=== PATIENT | male | born 1955 | race Caucasian/White ===

== ENCOUNTER 2016-12-14 11:19 | Emergency (ER) | payer OTHER ==
--- NOTE | 2016-12-14 11:42 | EDPHY ---
H & P Stated Complaint: last week noticed smoke in air - this am woke SOB- denies URI Time Seen by Provider: 12/14/16 11:35 HPI/ROS: CHIEF COMPLAINT: Shortness of breath HISTORY OF PRESENT ILLNESS: Patient is a 61-year-old healthy runner who comes to the emergency department complaining that several times last night he woke up and felt conscious of his breathing. He denies any history of asthma or pulmonary disease. He is not a smoker. No recent travel or procedures. No leg pain or swelling. No chest pain. No lightheadedness. He states that even this morning he does not really feel short of breath but feels like he has to be aware of his breathing. He is saturating 99% on room air. He did use albuterol once 20 years ago from cried is but has not needed it since. No fevers. No cough. No sore throat. REVIEW OF SYSTEMS: Constitutional: denies: chills, fever, recent illness, recent injury EENTM: denies: blurred vision, double vision, nose congestion Respiratory: See HPI Cardiac: denies: chest pain, irregular heart rate, lightheadedness, palpitations Gastrointestinal/Abdominal: denies: abdominal pain, diarrhea, nausea, vomiting, blood streaked stools Genitourinary: denies: dysuria, frequency, hematuria, pain Musculoskeletal: denies: joint pain, muscle pain Skin: denies: lesions, rash, jaundice, bruising Neurological: denies: headache, numbness, paresthesia, tingling, dizziness, weakness Hematologic/Lymphatic: denies: blood clots, easy bleeding, easy bruising Immunologic/allergic: denies: HIV/AIDS, transplant EXAM: GENERAL: Well-appearing, well-nourished and in no acute distress. HEAD: Atraumatic, normocephalic. EYES: Pupils equal round and reactive to light, extraocular movements intact, sclera anicteric, conjunctiva are normal. ENT: TMs normal, nares patent, oropharynx clear without exudates. Moist mucous membranes. NECK: Normal range of motion, supple without lymphadenopathy or JVD. LUNGS: Breath sounds clear to auscultation bilaterally and equal. No wheezes rales or rhonchi. HEART: Regular rate and rhythm without murmurs, rubs or gallops. ABDOMEN: Soft, nontender, normoactive bowel sounds. No guarding, no rebound. No masses appreciated. BACK: No CVA tenderness, no spinal tenderness, step-offs or deformities EXTREMITIES: Normal range of motion, no pitting or edema. No clubbing or cyanosis. NEUROLOGICAL: Cranial nerves II through XII grossly intact. Normal speech, normal gait. 5/5 strength, normal movement in all extremities, normal sensation PSYCH: Normal mood, normal affect. SKIN: Warm, dry, normal turgor, no visible rashes or lesions. Source: Patient Exam Limitations: No limitations - Personal History Current Tetanus Diphtheria and Acellular Pertussis (TDAP): Yes - Medical/Surgical History Hx Asthma: No Hx Chronic Respiratory Disease: No Hx Diabetes: No Hx Cardiac Disease: No Hx Renal Disease: No Hx Cirrhosis: No Hx Alcoholism: No Other PMH: ACL/TA - Social History Smoking Status: Never smoked Alcohol Use: Sober Drug Use: None Constitutional: Initial Vital Signs Temperature (C) 36.6 C 12/14/16 11:29 Heart Rate 70 12/14/16 11:29 Respiratory Rate 18 12/14/16 11:29 Blood Pressure 141/89 H 12/14/16 11:29 O2 Sat (%) 97 12/14/16 11:29 O2 Delivery Mode Room Air Allergies/Adverse Reactions: No Known Allergies Allergy (Unverified 12/14/16 11:28) Home Medications: Medication Instructions Recorded NK [No Known Home Meds] 12/14/16 Medical Decision Making - Diagnostics EKG Interpretation: An EKG obtained and was read and documented in trace view. Please see trace view for full reading and report. Sinus rhythm, no acute ischemic changes, incomplete right bundle Imaging Results: Imaging Impressions Chest X-Ray 12/14/16 11:40 Impression: Minimal blunting of the left costophrenic angle, possibly related to atelectasis or trace effusion. ED Course/Re-evaluation: The patient is a healthy 61-year-old man with a normal pulmonary exam and vital signs. I will obtain an EKG and chest x-ray for reassurance. He denies chest pain. I did offer him a trial of albuterol but he states that he does not like the way it makes him feel and that he does not feel that bad. 12:15 p.m. we discussed the x-ray and EKG results. The patient is reassured. He is eager to leave. We discussed indications for returning. His perc score is negative Differential Diagnosis: Partial list of the Differential diagnosis considered include but were not limited to; bronchitis, upper respiratory tract infection and although unlikely based on the history and physical exam, I also considered pneumonia, asthma, COPD, acute coronary disease, PE. I discussed these differential diagnoses and the plan with the patient as well as the usual and expected course. The patient understands that the diagnosis is provisional and that in medicine we are not always correct and that further workup is often warranted. Usual and customary warnings were given. All of the patient's questions were answered. The patient was instructed to return to the emergency department should the symptoms at all worsen or return, otherwise to followup with the physician as we discussed. Departure - Departure Disposition: Home, Routine, Self-Care Clinical Impression: Dyspnea Qualifiers: Dyspnea type: unspecified Qualified Code(s): R06.00 - Dyspnea, unspecified Condition: Fair Instructions: Dyspnea (ED) Referrals: NONE *PRIMARY CARE P,. [Primary Care Provider] - As per Instructions Sandra Castano MD [[facility] Primary Care Provider] - As per Instructions
--- NOTE | 2016-12-14 11:45 | CPEKG ---
Heart Rate: 69 RR Interval: 870 P-R Interval: 188 QRSD Interval: 110 QT Interval: 396 QTC Interval: 425 P [place]: 79 QRS [place]: 87 T Wave [place]: 16 EKG Severity - ABNORMAL ECG - EKG Impression: SINUS RHYTHM EKG Impression: BIATRIAL ABNORMALITIES EKG Impression: INCOMPLETE RIGHT BUNDLE BRANCH BLOCK Electronically Signed By: Chandra Houston 14-Dec-2016 11:47:41
[2016-12-14 12:22] VITALS: BP 130/89; PULSE 64; RESP 16; TEMP 98.2; O2SAT 95
== END 2016-12-14 12:17 | disposition home or self-care (01) ==
LOC: CED 11:19
DX: R06.00 Dyspnea, unspecified (principal)
CPT/HCPCS: 71020-PO

== ENCOUNTER → 2017-05-03 | Outpatient (CLI) | payer OTHER | LOC: CIMAGING 10:17 | PROVIDERS: ATTEND Physician Assistant | DX: Z13.810 Encounter for screening for upper gastrointestinal disorder (principal) | CPT/HCPCS: 74018-PO ==

== ENCOUNTER 2017-05-23 16:32 | Emergency (ER) | payer OTHER ==
--- NOTE | 2017-05-23 16:43 | EDPHY ---
H & P Time Seen by Provider: 05/23/17 16:43 - Medical/Surgical History Hx Asthma: No Hx Chronic Respiratory Disease: No Hx Diabetes: No Hx Cardiac Disease: No Hx Renal Disease: No Hx Cirrhosis: No Hx Alcoholism: No Other PMH: ACL/TA - Social History Smoking Status: Never smoked Constitutional: Initial Vital Signs Temperature (C) 36.6 C 05/23/17 16:42 Heart Rate 82 05/23/17 16:42 Respiratory Rate 18 05/23/17 16:42 Blood Pressure 156/91 H 05/23/17 16:42 O2 Sat (%) 96 05/23/17 16:42 O2 Delivery Mode Room Air Allergies/Adverse Reactions: Sulfa (Sulfonamide Antibiotics) Allergy (Verified 05/23/17 16:42) Home Medications: Medication Instructions Recorded Hydrocodone/APAP 5/325 [Felda 1 - 2 each PO Q4-6PRN PRN #20 tab 05/23/17 5/325] Tamsulosin HCl [Flomax 0.4 MG (*)] 0.4 mg PO DAILY #10 cap 05/23/17 Medical Decision Making - Diagnostics Imaging: Discussed imaging studies w/ link fabric machine operator Radiologist, I viewed and interpreted images myself ED Course/Re-evaluation: CHIEF COMPLAINT: Right lower quadrant pain HISTORY OF PRESENT ILLNESS: 62-year-old gentleman with no prior history of abdominal surgeries who presents with right lower quadrant pain of approximately 3 day duration. He feels like the pain is related to constipation. He denies any nausea vomiting or diarrhea. He denies any fevers chills. He points very low in his right groin area in complains the pain is more groin pain. He also states that he had some pain on the left initially. She has never had pain like this before. Movement since stretching actually relieves the pain as opposed to exacerbated. REVIEW OF SYSTEMS: A 10 point review of systems was performed and is negative with the exception of the elements mentioned in the history of present illness. PHYSICAL EXAM: HR, BP, O2 Sat, RR. Temp noted General Appearance: Alert, well hydrated, appropriate, and non-toxic appearing. Head: Atraumatic without scalp tenderness or obvious injury Eyes: Pupils equal, round, reactive to light and accommodation, EOMI, no trauma , no injection. Ears: Clear bilaterally, no perforation, normal landmarks Nose: Atraumatic, no rhinorrhea, clear. Throat: There is no erythema or exudates, no lesions, normal tonsils, mucus membranes moist. Neck: Supple, 2+ carotid upstroke, nontender, no lymphadenopathy. Respiratory: No retractions, no distress, no wheezes, and no accessory muscle use. Lungs are clear to auscultation bilaterally. Cardiovascular: Regular rate and rhythm, no murmurs, rubs, or gallops. Bilateral carotid, radial, dorsalis pedis, and posterior tibial pulses intact. Good capillary refill all extremities. Gastrointestinal: Abdomen is soft, nontender, non-distended, no masses, no rebound, no guarding, no peritoneal signs. He has a benign abdomen and I cannot really reproduce the pain however the pain is in the very right lower quadrant area well below McBurney's point Musculoskeletal: Normal active ROM of all extremities, atraumatic. Neurological: Alert, appropriate, and interactive. The patient has normal DTRs and non-focal cranial nerves, motor, sensory, and cerebellar exam. Skin: No rashes, good turgor, no nodules on palpation. Past medical history: Noncontributory Past surgical history: No prior abdominal surgery Family history: Noncontributory Social history: Single, employed, does not abuse tobacco drugs or alcohol DIAGNOSTICS/PROCEDURES/CRITICAL CARE TIME: Study: CT of the abdomen pelvis with IV contrast Indication: Right lower quadrant abdominal pain Results: CT scan of the abdomen and pelvis was obtained. The results of the study reveal a kidney stone. I viewed the images myself on the PACS system. DIFFERENTIAL DIAGNOSIS: The differential diagnosis for the patient's abdominal pain included but was not limited to appendicitis, cholecystitis, hernias, testicular torsion, gastritis, and urinary tract infection. MEDICAL DECISION MAKING: Healthy 62-year-old with 3 days of abdominal pain localizing to the right lower quadrant. He has a fairly benign and soft abdomen and certainly no peritoneal signs. The pain is very low him use scribe' s the pain is almost groin pain. I am concerned about the potential for kidney stone or possibly a cecal diverticulitis. He could also have appendicitis. CT scan and laboratory studies are pending. Patient is comfortable and does not need anti nausea or pain meds. 1750: Spoke with radiologist, patient has a kidney stone. 1809: Reassessed patient and discussed imaging results. I have prescribed him Flomax and instructed him to follow up with a urologist. Return precautions provided; patient is comfortable with this plan. - Data Points Laboratory Results: Laboratory Results 05/23/17 16:45 18 16:45 18 18 18 17:01 16:45 16:45 WBC 5.43 10^3/uL 10^3/uL (3.80-9.50) RBC 5.19 10^6/uL 10^6/uL (4.40-6.38) Hgb 16.6 g/dL g/dL (13.7-17.5) Hct 47.8 % % (40.0-51.0) MCV 92.1 fL fL (81.5-99.8) MCH 32.0 pg pg (27.9-34.1) MCHC 34.7 g/dL g/dL (32.4-36.7) RDW 12.1 % % (11.5-15.2) Plt Count 167 10^3/uL 10^3/uL (150-400) MPV 12.8 fL H fL (8.7-11.7) Neut % (Auto) 60.6 % % (39.3-74.2) Lymph % (Auto) 28.7 % % (15.0-45.0) [place] % (Auto) 8.1 % % (4.5-13.0) Eos % (Auto) 1.3 % % (0.6-7.6) Baso % (Auto) 1.1 % % (0.3-1.7) Nucleat RBC Rel Count 0.0 % % (0.0-0.2) Absolute Neuts (auto) 3.29 10^3/uL 10^3/uL (1.70-6.50) Absolute Lymphs (auto) 1.56 10^3/uL 10^3/uL (1.00-3.00) Absolute Monos (auto) 0.44 10^3/uL 10^3/uL (0.30-0.80) Absolute Eos (auto) 0.07 10^3/uL 10^3/uL (0.03-0.40) Absolute Basos (auto) 0.06 10^3/uL 10^3/uL (0.02-0.10) Absolute Nucleated RBC 0.00 10^3/uL 10^3/uL (0-0.01) Immature Gran % 0.2 % % (0.0-1.1) Immature Gran # 0.01 10^3/uL 10^3/uL (0.00-0.10) Sodium 137 mEq/L mEq/L (135-145) Potassium 4.4 mEq/L mEq/L (3.5-5.2) Chloride 105 mEq/L mEq/L (97-110) Carbon Dioxide 22 mEq/l mEq/l (22-31) Anion Gap 10 mEq/L mEq/L (8-16) BUN 13 mg/dL mg/dL (7-23) Creatinine 1.1 mg/dL mg/dL (0.7-1.3) Estimated GFR > 60 Glucose 90 mg/dL mg/dL (70-100) Calcium 10.5 mg/dL H mg/dL (8.5-10.4) Total Bilirubin 1.2 mg/dL mg/dL (0.1-1.4) Conjugated Bilirubin 0.7 mg/dL H mg/dL (0.0-0.5) Unconjugated Bilirubin 0.5 mg/dL mg/dL (0.0-1.1) AST 35 IU/L IU/L (17-59) ALT 35 IU/L IU/L (21-72) Alkaline Phosphatase 81 IU/L IU/L (38-126) Total Protein 7.4 g/dL g/dL (6.3-8.2) Albumin 4.5 g/dL g/dL (3.5-5.0) Lipase 104 IU/L IU/L (23-300) Specimen Hemolysis 114 Urine Color PALE YELLOW Urine Appearance CLEAR Urine pH 5.0 (5.0-7.5) Ur Specific [place] 1.005 (1.002-1.030) Urine Protein NEGATIVE (NEGATIVE) Urine Ketones NEGATIVE (NEGATIVE) Urine Blood NEGATIVE (NEGATIVE) Urine Nitrate NEGATIVE (NEGATIVE) Urine Bilirubin NEGATIVE (NEGATIVE) Urine Urobilinogen NEGATIVE EU EU (0.2-1.0) Ur Leukocyte Esterase NEGATIVE (NEGATIVE) Urine RBC NONE SEEN /hpf /hpf (0-3) Urine WBC 1-3 /hpf /hpf (0-3) Ur Epithelial Cells NONE SEEN /lpf /lpf (NONE-1+) Urine Mucus TRACE /lpf /lpf (NONE-1+) Urine Glucose NEGATIVE (NEGATIVE) Departure - Departure Disposition: Home, Routine, Self-Care Clinical Impression: Kidney stone Condition: Good Instructions: Kidney Stones (ED) Additional Instructions: 1. Take Flomax as prescribed. 2. Follow-up with a urologist within 72 hours. 3. Return to the emergency department immediately for recurrence of headache, nausea, vomiting, numbness, weakness, neck pain, fever or other concerns. 4. Use Tylenol and/or ibuprofen as directed. Referrals: Pita Loza MD [Primary Care Provider] - As per Instructions Aracelis Sharif MD [Medical Doctor] - As per Instructions Prescriptions: Hydrocodone/APAP 5/325 [Felda 5/325] 1 - 2 each PO Q4-6PRN PRN #20 tab PRN Reason: Pain, Moderate Tamsulosin HCl [Flomax 0.4 MG (*)] 0.4 mg PO DAILY #10 cap Report Scribed for: Jeffy Roldan Report Scribed by: Michaelle Schultz Date of Report: 05/23/17 Time of Report: 18:03
[2017-05-23 17:05] LABS: PLATELET COUNT 167 10^3/uL (150-400)
[2017-05-23] MEDS ORDERED: IOPAMIDOL (ISOVUE-300) 100 ML BTL ONE (17:19)
[2017-05-23] MEDS ORDERED: TAMSULOSIN HCL 0.4 MG CAP PO ONE (18:01)
[2017-05-23 18:11] VITALS: BP 128/82; PULSE 63; RESP 16; TEMP 98.2; O2SAT 95
== END 2017-05-23 18:15 | disposition home or self-care (01) ==
DX: N20.0 Calculus of kidney (principal)
CPT/HCPCS: Q9967

== ENCOUNTER → 2017-06-22 | Outpatient (CLI) | payer OTHER ==
[~2017-06-22] MED LIST: IOPAMIDOL (ISOVUE-300) 150 ML BTL ONE
== END ==
LOC: CIMAGING 11:00
PROVIDERS: ATTEND Urology
DX: N20.1 Calculus of ureter (principal); N40.0 Benign prostatic hyperplasia without lower urinary tract symptoms; K59.00 Constipation, unspecified
CPT/HCPCS: Q9967